=== PATIENT | male | born 1965 | race Caucasian/White ===

== ENCOUNTER 2020-12-25 06:12 | Day surgery (SDC) | payer OTHER ==
[~2020-12-25] VITALS: Ht 162.6 cm; Wt 83.9 kg
[2020-12-25] MEDS ORDERED: fentaNYL citrate 0.05 MG/ML VIAL ONE (08:42)
[2020-12-25] MEDS ORDERED: MIDAZOLAM 5 MG/5 ML VIAL ONE (08:42)
[2020-12-25] MEDS ORDERED: MIDAZOLAM 2 MG/2 ML VIAL IVP ONE (10:00)
== END 2020-12-25 10:00 | disposition home or self-care (01) ==
LOC: MDS 06:12 → MMU 06:15 → MDS 10:00
PROVIDERS: ATTEND Internal Medicine Gastroenterology
DX: R10.12 Left upper quadrant pain (principal); K29.70 Gastritis, unspecified, without bleeding; E11.9 Type 2 diabetes mellitus without complications; E78.5 Hyperlipidemia, unspecified; Z79.84 Long term (current) use of oral hypoglycemic drugs; Z79.899 Other long term (current) drug therapy
CPT/HCPCS: 36415; 43239; 86677; J2250; J3010